=== PATIENT | male | born 1955 | race Caucasian/White ===

== ENCOUNTER → 2016-09-20 | Outpatient (CLI) | payer OTHER ==
[~2016-09-20] MED LIST: FERREX 150150 MG PO; FLEXERIL10 MG PO; HYDROCODON-ACE1 EAC7 PO; IMODIUM MS REL1 EACH PO; NAPROXEN500 MG PO; NIFEREX-150,FE150 MG PO; PERCOCET 5/31 TABLET PO
== END | disposition home or self-care (01) ==
LOC: RAD 08:18
DX: R59.9 Enlarged lymph nodes, unspecified (principal); I88.0 Nonspecific mesenteric lymphadenitis; C18.9 Malignant neoplasm of colon, unspecified; C77.2 Secondary and unspecified malignant neoplasm of intra-abdominal lymph nodes
CPT/HCPCS: 71260; 74177

== ENCOUNTER → 2016-11-02 | Outpatient (CLI) | payer OTHER ==
[~2016-11-02] VITALS: Ht 182.9 cm; Wt 66.4 kg
== END | disposition home or self-care (01) ==
LOC: AMB 11:32
DX: C78.4 Secondary malignant neoplasm of small intestine (principal); C18.9 Malignant neoplasm of colon, unspecified; C77.2 Secondary and unspecified malignant neoplasm of intra-abdominal lymph nodes; Z92.21 Personal history of antineoplastic chemotherapy; K22.70 Barrett's esophagus without dysplasia; K20.8 Other esophagitis; K29.40 Chronic atrophic gastritis without bleeding; Z86.2 Personal history of diseases of the blood and blood-forming organs and certain disorders involving the immune mechanism; Z82.49 Family history of ischemic heart disease and other diseases of the circulatory system; Z83.71 Family history of colonic polyps; Z80.1 Family history of malignant neoplasm of trachea, bronchus and lung
CPT/HCPCS: 88305; 88342 TC; C1726; J0330; J2250; J2405; J3010

== ENCOUNTER → 2016-12-08 | Outpatient (CLI) | payer OTHER | END | disposition home or self-care (01) | LOC: RAD 08:50 | DX: R93.5 Abnormal findings on diagnostic imaging of other abdominal regions, including retroperitoneum (principal); C78.4 Secondary malignant neoplasm of small intestine | CPT/HCPCS: 74177 ==

== ENCOUNTER → 2017-03-05 | Outpatient (CLI) | payer OTHER ==
[~2017-03-05] MED LIST changes: +OMEPRAZOLE40 M1 PO
== END | disposition home or self-care (01) ==
LOC: RAD 08:31
DX: K31.89 Other diseases of stomach and duodenum (principal); R59.9 Enlarged lymph nodes, unspecified
CPT/HCPCS: 74177

== ENCOUNTER → 2017-05-24 | Outpatient (CLI) | payer OTHER ==
[~2017-05-24] MED LIST changes: +FEOSOL45 MG PO
== END | disposition home or self-care (01) ==
LOC: RAD 08:50
DX: K31.89 Other diseases of stomach and duodenum (principal); Z90.49 Acquired absence of other specified parts of digestive tract
CPT/HCPCS: 74176

== ENCOUNTER → 2017-08-16 | Outpatient (CLI) | payer OTHER | END | disposition home or self-care (01) | LOC: RAD 09:33 | DX: R59.0 Localized enlarged lymph nodes (principal) | CPT/HCPCS: 74177 ==

== ENCOUNTER → 2017-08-24 | Outpatient (CLI) | payer OTHER | END | disposition home or self-care (01) | LOC: RAD 10:51 | DX: R59.0 Localized enlarged lymph nodes (principal); Z95.828 Presence of other vascular implants and grafts | CPT/HCPCS: 71250 ==

== ENCOUNTER → 2017-09-21 | Outpatient (CLI) | payer OTHER ==
[~2017-09-21] MED LIST changes: +SYNTHROID50 MCG PO
[2017-09-23 17:15] LABS: Flow Clinical Information NOT PROVIDED (()); Flow Number of Markers 22 (()); Flow Spec Viability 79 % (()); Flow Specimen Type LYMPH NODE (())
== END | disposition home or self-care (01) ==
LOC: RAD 12:39 → EDSTATUS 13:00
PROVIDERS: Internal Medicine
PROC: 0H94XZX Drainage of Neck Skin, External Approach, Diagnostic (ICD-10-PCS; principal; 2017-09-21)
DX: L92.9 Granulomatous disorder of the skin and subcutaneous tissue, unspecified (principal); R59.0 Localized enlarged lymph nodes
CPT/HCPCS: 76942; 88305; 88312; 88313

== ENCOUNTER → 2017-12-05 | Outpatient (CLI) | payer OTHER | END | disposition home or self-care (01) | LOC: RAD 08:09 | DX: D86.1 Sarcoidosis of lymph nodes (principal) | CPT/HCPCS: 71260; 74177 ==